=== PATIENT | female | born 1940 | race Caucasian/White ===

== ENCOUNTER 2020-06-10 13:42 | Emergency (ER) | payer MEDICARE, OTHER ==
[~2020-06-10] VITALS: Ht 152.4 cm; Wt 56.7 kg
[2020-06-10 14:41] VITALS: BP 146/80
[2020-06-10 14:55] LABS: Basophils # (auto) 0.1 10 ^3/uL (0-0.2); Basophils % (auto) 0.8 % (0.0-2.0); Eosinophils # (auto) 0.3 10 ^3/uL (0-0.8); Eosinophils % (auto) 2.9 % (0.0-7.0); Hematocrit 41.9 % (36.0-46.0); Hemoglobin 14.2 g/dL (12.2-16.2); Lymphocytes # (auto) 1.7 10 ^3/uL (0.4-5.4); Lymphocytes % (auto) 16.3 % (10.0-50.0); Mean Corpuscular Volume 88.4 fL (80.0-100.0); Monocytes # (auto) 0.8 10 ^3/uL (0-1.3); Monocytes % (auto) 7.6 % (0.0-12.0); Neutrophils # (auto) 7.5 10 ^3/uL (1.6-8.6); Neutrophils % (auto) 72.4 % (37.0-80.0); Platelet Count (auto) 362 10^3/uL (140-450); Red Blood Cells 4.74 10^6/uL (4.0-5.20); Red Cell Distribution Width 13.3 % (11.8-14.3); White Blood Cell 10.4 10^3/uL (4.4-10.8)
[2020-06-10 16:12] LABS: Alanine Aminotransferase 15 U/L (13-56); Albumin 3.9 g/dL (3.4-5.0); Anion Gap 11 (5-15); Aspartate Aminotransferase 14 U/L (15-37); BUN/Creatinine Ratio 15.2; Blood Urea Nitrogen 10 mg/dL (7-18); Calcium 9.1 mg/dL (8.5-10.1); Carbon Dioxide 22 mmol/L (21-32); Chloride 102 mmol/L (98-107); GFR African American 112 mL/min; GFR Non-African American 92 mL/min; Glucose 111 mg/dL (74-106); Potassium 3.1 mmol/L (3.5-5.1); Sodium 135 mmol/L (136-145)
[2020-06-10 16:15] LABS: Urine Bacteria FEW /hpf (None Seen); Urine Blood TRACE /uL (Negative); Urine Budding Yeast MODERATE /hpf (None Seen); Urine Specific Gravity 1.014 (1.001-1.035); Urine WBC 82 /hpf (0 - 5)
[2020-06-10 16:17] LABS: Alkaline Phosphatase 129 U/L (45-117); Bilirubin, Total 1.2 mg/dL (0.2-1.0); Total Protein 7.4 g/dL (6.4-8.2)
[2020-06-10] MEDS ORDERED: cefTRIAXone W LIDOCAINE 1 GM IM IM ONE (16:45)
[2020-06-10] MEDS ORDERED: POTASSIUM EFFERVESENT TAB 25 MEQ PO ONE (16:45)
== END 2020-06-10 21:27 | disposition home or self-care (01) ==
LOC: ER 13:42
DX: F03.90 Unspecified dementia, unspecified severity, without behavioral disturbance, psychotic disturbance, mood disturbance, and anxiety (principal); N39.0 Urinary tract infection, site not specified; E87.6 Hypokalemia
CPT/HCPCS: 36415; 70450; 71045; 80053; 81001; 84484; 85025; 99285; J0696

== ENCOUNTER 2021-12-10 12:29 | Inpatient (IN) | payer MEDICARE, OTHER ==
[~2021-12-10] VITALS: Ht 152.4 cm; Wt 53.0 kg
[2021-12-10] MEDS ORDERED: SODIUM CHLORIDE 0.9% 1,000 ML IV ONE ×2 (12:45→13:45)
[2021-12-10 13:13] LABS: Basophils # (auto) 0.1 10 ^3/uL (0-0.2); Basophils % (auto) 0.3 % (0.0-2.0); Eosinophils # (auto) 0 10 ^3/uL (0-0.8); Eosinophils % (auto) 0.1 % (0.0-7.0); Hematocrit 37.4 % (36.0-46.0); Hemoglobin 12.5 g/dL (12.2-16.2); Lymphocytes # (auto) 1.3 10 ^3/uL (0.4-5.4); Lymphocytes % (auto) 5.3 % (10.0-50.0); Mean Corpuscular Hemoglobin 29.5 pg (28.0-32.0); Mean Corpuscular Hgb Conc. 33.4 g/dL (32.0-36.0); Mean Corpuscular Volume 88.3 fL (80.0-100.0); Monocytes # (auto) 1.1 10 ^3/uL (0-1.3); Monocytes % (auto) 4.3 % (0.0-12.0); Neutrophils # (auto) 22.4 10 ^3/uL (1.6-8.6); Red Blood Cells 4.23 10^6/uL (4.0-5.20); Red Cell Distribution Width 14.4 % (11.8-14.3); White Blood Cell 24.9 10^3/uL (4.4-10.8)
[2021-12-10 13:44] LABS: Albumin 2.3 g/dL (3.4-5.0); Calcium 8.3 mg/dL (8.5-10.1); Potassium 3.2 mmol/L (3.5-5.1)
[2021-12-10 13:48] LABS: BUN/Creatinine Ratio 11.5; Bilirubin, Total 1.4 mg/dL (0.2-1.0); Total Protein 5.9 g/dL (6.4-8.2)
[2021-12-10] MEDS ORDERED: cefTRIAXone 1GM/50ML D5W 50 ML IV ONE ×2 (15:30→17:45)
[2021-12-10] MEDS ORDERED: POTASSIUM CHL 20 Meq TABLET PO ONE (15:30)
[2021-12-10] MEDS ORDERED: NITROGLYCERIN 0.4 MG SL TAB SL PRN (15:30)
[2021-12-10] MEDS ORDERED: MORPHINE SULFATE INJECTION 2 MG/ML SYRG IV PRN ×2 (15:30→17:45)
[2021-12-10 16:24] LABS: Urine Bacteria FEW /hpf (None Seen); Urine Blood 1+ /uL (Negative); Urine Budding Yeast OCCASIONAL /hpf (None Seen); Urine Specific Gravity 1.014 (1.001-1.035); Urine WBC 346 /hpf (0 - 5); Urine WBC Clumps PRESENT /hpf (None Seen)
[2021-12-10] MEDS ORDERED: LORazepam 0.5 MG TAB PO PRN (17:45)
[2021-12-10] MEDS ORDERED: HYDROcodone-ACET 5/325MG TAB PO PRN (17:45)
[2021-12-10] MEDS ORDERED: ONDANSETRON HCL 4 MG/2 ML VIAL IV PRN (17:45)
[2021-12-10] MEDS ORDERED: FAMOTIDINE (10MG/ML) 2ML VL IV ONE (17:45)
[2021-12-10] MEDS ORDERED: LACTULOSE 20Gm/30ML SOLN PO PRN (17:45)
[2021-12-10] MEDS ORDERED: DOCUSATE SOD 100 MG CAP PO PRN (17:45)
[2021-12-10] MEDS ORDERED: ACETAMINOPHEN 325 MG TAB PO PRN (17:45)
[2021-12-10] MEDS ORDERED: hydrALAZINE HCL 20 MG/ML VL IV PRN (17:45)
[2021-12-10] MEDS ORDERED: metroNIDAZOLE 500MG/100ML 100 ML IV ONE (17:45)
[2021-12-10 18:31] LABS: Magnesium 1.5 mg/dL (1.6-2.6); Phosphorus 3.2 mg/dL (2.5-4.90)
[2021-12-10] MEDS: SODIUM CHLORIDE 0.9% 1,000 ML IV SCH (18:59)
[2021-12-10 20:20] VITALS: BP 134/66
[2021-12-10 22:00] VITALS: BP 134/66
[2021-12-10] MEDS ORDERED: MEMANTINE HCL 5 MG TAB PO SCH (22:00)
[2021-12-10] MEDS: POTASSIUM CHL 20 Meq TABLET PO SCH (22:00)
[2021-12-10] MEDS ORDERED: OXYBUTYNIN CHL 5 MG TAB PO SCH (22:00)
[2021-12-10] MEDS: ATORVASTATIN 20 MG TAB PO SCH (22:24)
[2021-12-11] MEDS: metroNIDAZOLE 500MG/100ML 100 ML IV SCH ×3 (01:55→19:00)
[2021-12-11] MEDS ORDERED: FAMO20TA PO (02:40)
[2021-12-11] MEDS ORDERED: CARB-79 PO (02:40)
[2021-12-11] MEDS ORDERED: DONE1TAB88 PO (02:40)
[2021-12-11] MEDS ORDERED: ALEN70SO PO (02:40)
[2021-12-11] MEDS ORDERED: QUIN20TA35 PO (02:40)
[2021-12-11 05:00] VITALS: BP 124/65
[2021-12-11 07:16] LABS: Chloride 114 mmol/L (98-107); Magnesium 1.8 mg/dL (1.6-2.6); Potassium 3.1 mmol/L (3.5-5.1); Sodium 145 mmol/L (136-145); Uric Acid 3.7 mg/dL (2.6-6.0)
[2021-12-11 07:19] LABS: Basophils # (auto) 0.1 10 ^3/uL (0-0.2); Basophils % (auto) 0.3 % (0.0-2.0); Eosinophils # (auto) 0.1 10 ^3/uL (0-0.8); Eosinophils % (auto) 0.4 % (0.0-7.0); Hematocrit 37.1 % (36.0-46.0); Hemoglobin 12.4 g/dL (12.2-16.2); Lymphocytes # (auto) 0.8 10 ^3/uL (0.4-5.4); Lymphocytes % (auto) 4.9 % (10.0-50.0); Mean Corpuscular Hemoglobin 29.8 pg (28.0-32.0); Mean Corpuscular Hgb Conc. 33.5 g/dL (32.0-36.0); Mean Corpuscular Volume 88.8 fL (80.0-100.0); Monocytes # (auto) 0.8 10 ^3/uL (0-1.3); Monocytes % (auto) 4.7 % (0.0-12.0); Neutrophils # (auto) 15.4 10 ^3/uL (1.6-8.6); Neutrophils % (auto) 89.7 % (37.0-80.0); Nucleated Red Blood Cells % 0.1 %; Red Blood Cells 4.18 10^6/uL (4.0-5.20); Red Cell Distribution Width 14.8 % (11.8-14.3); White Blood Cell 17.1 10^3/uL (4.4-10.8)
[2021-12-11 07:24] LABS: INR 1.23 (0.9-1.15); Partial Thromboplastin Time 32.2 sec (23.6-33.0)
[2021-12-11 07:25] LABS: Thyroid Stimulating Hormone 12.1 uIU/mL (0.358-3.74)
[2021-12-11 07:32] LABS: Alanine Aminotransferase 16 U/L (13-56); Albumin 2.2 g/dL (3.4-5.0); Alkaline Phosphatase 103 U/L (45-117); Anion Gap 10 (5-15); Aspartate Aminotransferase 16 U/L (15-37); Bilirubin, Total 0.8 mg/dL (0.2-1.0); Blood Urea Nitrogen 10 mg/dL (7-18); Calcium 8.3 mg/dL (8.5-10.1); Carbon Dioxide 21 mmol/L (21-32); Cholesterol 132 mg/dL (< 200); Creatine Kinase IFCC 32 U/L (26-192); GFR African American 153 mL/min; GFR Non-African American 126 mL/min; Glucose 91 mg/dL (74-106); HDL Cholesterol 54 mg/dL (40-59); LDL Cholesterol 59 mg/dL (< 100); Lipase 50 U/L (73-393); Phosphorus 2.6 mg/dL (2.5-4.90); Total Protein 5.7 g/dL (6.4-8.2); Triglycerides 87 mg/dL (< 150)
[2021-12-11 07:38] LABS: CRP High Sensitivity > 19 mg/dL (< 0.3)
[2021-12-11 08:27] VITALS: BP 135/59
[2021-12-11] MEDS: ASPirin 81 mg TAB PO SCH (08:59)
[2021-12-11] MEDS: POTASSIUM CHL 20 Meq TABLET PO SCH ×2 (08:59→21:45)
[2021-12-11] MEDS: ENOXAPARIN SOD 40 MG/0.4 ML SYRINGE SC SCH (09:00)
[2021-12-11] MEDS: cefTRIAXone 1GM/50ML D5W 50 ML IV SCH (09:00)
[2021-12-11 09:55] LABS: Alcohol, Urine < 3.0 mg/dL (0-10); Amphetamine Screen, Urine NEGATIVE (NEGATIVE); Barbiturate Scree,Urine NEGATIVE (NEGATIVE); Benzodiazephine Screen, Urine NEGATIVE (NEGATIVE); Cannabinoid Screen, Urine NEGATIVE (NEGATIVE); Cocaine Screen, Urine NEGATIVE (NEGATIVE); Opiate Scree,Urine NEGATIVE (NEGATIVE); Phencyclidine Screen, Urine NEGATIVE (NEGATIVE); Protein, Urine 68.8 mg/dL (0.0-11.9)
[2021-12-11] MEDS ORDERED: MAGNESIUM SULFATE 1GM/100ML 100 ML IV ONE (11:00)
[2021-12-11 12:30] VITALS: BP 150/63
[2021-12-11 17:00] VITALS: BP 125/62
[2021-12-11] MEDS: SODIUM CHLORIDE 0.9% 1,000 ML IV SCH (17:38)
[2021-12-11] MEDS: ATORVASTATIN 20 MG TAB PO SCH (21:44)
[2021-12-11 22:00] VITALS: BP 143/99
[2021-12-12] MEDS: metroNIDAZOLE 500MG/100ML 100 ML IV SCH ×3 (02:13→17:55)
[2021-12-12] MEDS: SODIUM CHLORIDE 0.9% 1,000 ML IV SCH ×2 (03:05→17:55)
[2021-12-12 05:00] VITALS: BP 99/55
[2021-12-12 09:00] VITALS: BP 113/58
[2021-12-12] MEDS: POTASSIUM CHL 20 Meq TABLET PO SCH ×2 (09:34→23:18)
[2021-12-12] MEDS: ASPirin 81 mg TAB PO SCH (09:34)
[2021-12-12] MEDS: cefTRIAXone 1GM/50ML D5W 50 ML IV SCH (09:34)
[2021-12-12] MEDS: ENOXAPARIN SOD 40 MG/0.4 ML SYRINGE SC SCH (09:35)
[2021-12-12] MEDS: FAMOTIDINE (10MG/ML) 2ML VL IV SCH (09:35)
[2021-12-12 13:00] VITALS: BP 96/56
[2021-12-12 17:00] VITALS: BP 141/56
[2021-12-12 22:00] VITALS: BP 121/65
[2021-12-12] MEDS: Ensure HIGH Protein Vanilla 8oz Bottle PO SCH (23:17)
[2021-12-12] MEDS: ATORVASTATIN 20 MG TAB PO SCH (23:18)
[2021-12-13] MEDS: metroNIDAZOLE 500MG/100ML 100 ML IV SCH ×3 (02:01→17:56)
[2021-12-13 05:00] VITALS: BP 106/51
[2021-12-13 06:52] LABS: Hematocrit 33.6 % (36.0-46.0); Hemoglobin 11.4 g/dL (12.2-16.2); Mean Corpuscular Hemoglobin 30.3 pg (28.0-32.0); Red Blood Cells 3.77 10^6/uL (4.0-5.20); Red Cell Distribution Width 14.9 % (11.8-14.3); White Blood Cell 17.2 10^3/uL (4.4-10.8)
[2021-12-13 06:53] LABS: Albumin 1.8 g/dL (3.4-5.0); Calcium 7.6 mg/dL (8.5-10.1); Potassium 3.2 mmol/L (3.5-5.1)
[2021-12-13 06:58] LABS: BUN/Creatinine Ratio 23.3; Bilirubin, Total 0.7 mg/dL (0.2-1.0); Total Protein 4.9 g/dL (6.4-8.2)
[2021-12-13 07:20] LABS: Basophils % (manual) 0 (0.0-2.0); Blast Cells 0; Eosinophils % (manual) 0 (0-7); Myelocytes % 0; Promyelocytes % 0; Reactive Lymphocytes 0
[2021-12-13 07:56] LABS: Band Neutrophils % (manual) 75; Lymphocytes % (manual) 8 (10.0-50.0); Metamyelocytes % 1; Monocytes % (manual) 3 (0-12)
[2021-12-13] MEDS: LEVOTHYROXINE SODIUM 25 MCG TAB PO SCH (07:56)
[2021-12-13 08:00] VITALS: BP 121/66
[2021-12-13] MEDS: Ensure HIGH Protein Vanilla 8oz Bottle PO SCH ×2 (10:00→21:22)
[2021-12-13] MEDS: Pro-Stat SF 30ml Vanilla PO SCH (10:00)
[2021-12-13 12:00] VITALS: BP 114/71
[2021-12-13] MEDS: SODIUM CHLORIDE 0.9% 1,000 ML IV SCH (12:25)
[2021-12-13] MEDS ORDERED: ENOXAPARIN SOD 60 MG/0.6 ML SYRINGE SC ONE (13:15)
[2021-12-13] MEDS: cefTRIAXone 1GM/50ML D5W 50 ML IV SCH (13:44)
[2021-12-13] MEDS: ASPirin 81 mg TAB PO SCH (13:44)
[2021-12-13] MEDS: POTASSIUM CHL 20 Meq TABLET PO SCH ×2 (13:44→21:22)
[2021-12-13 16:00] VITALS: BP 147/52
[2021-12-13] MEDS: ENOXAPARIN SOD 60 MG/0.6 ML SYRINGE SC SCH (21:23)
[2021-12-13] MEDS: ATORVASTATIN 20 MG TAB PO SCH (21:23)
[2021-12-13 21:38] VITALS: BP 127/117
[2021-12-13 22:22] VITALS: BP 134/71
[2021-12-14] MEDS: metroNIDAZOLE 500MG/100ML 100 ML IV SCH ×2 (01:59→10:00)
[2021-12-14 05:01] VITALS: BP 134/96
[2021-12-14] MEDS: SODIUM CHLORIDE 0.9% 1,000 ML IV SCH (05:19)
[2021-12-14] MEDS: LEVOTHYROXINE SODIUM 25 MCG TAB PO SCH (05:51)
[2021-12-14 09:05] VITALS: BP 130/71
[2021-12-14] MEDS: cefTRIAXone 1GM/50ML D5W 50 ML IV SCH (09:15)
[2021-12-14 10:12] LABS: Free T3 0.98 pg/mL (2.3-4.2); Free T4 (Free Thyroxine) 0.59 ng/dL (0.89-1.76)
[2021-12-14] MEDS: Ensure HIGH Protein Vanilla 8oz Bottle PO SCH ×2 (10:49→22:58)
[2021-12-14] MEDS: ASPirin 81 mg TAB PO SCH (12:07)
[2021-12-14] MEDS: POTASSIUM CHL 20 Meq TABLET PO SCH ×2 (12:07→22:59)
[2021-12-14] MEDS: FAMOTIDINE (10MG/ML) 2ML VL IV SCH (12:07)
[2021-12-14] MEDS: Pro-Stat SF 30ml Vanilla PO SCH (12:08)
[2021-12-14] MEDS: ENOXAPARIN SOD 60 MG/0.6 ML SYRINGE SC SCH ×2 (12:08→22:59)
[2021-12-14 13:00] VITALS: BP 146/77
[2021-12-14 16:53] VITALS: BP 132/62
[2021-12-14] MEDS: VANCOMYCIN HCL 125MG/5ML ORAL SOL PO SCH (18:52)
[2021-12-14 22:00] VITALS: BP 152/66
[2021-12-15] MEDS: VANCOMYCIN HCL 125MG/5ML ORAL SOL PO SCH ×4 (00:08→17:51)
[2021-12-15 05:00] VITALS: BP 149/76
[2021-12-15 05:53] LABS: Hematocrit 35.2 % (36.0-46.0); Hemoglobin 11.8 g/dL (12.2-16.2); Mean Corpuscular Hemoglobin 29.6 pg (28.0-32.0); Mean Corpuscular Hgb Conc. 33.4 g/dL (32.0-36.0); Mean Corpuscular Volume 88.9 fL (80.0-100.0); Red Blood Cells 3.97 10^6/uL (4.0-5.20); Red Cell Distribution Width 15.3 % (11.8-14.3); White Blood Cell 17.6 10^3/uL (4.4-10.8)
[2021-12-15 05:55] LABS: Basophils % (manual) 0 (0.0-2.0); Blast Cells 0; Myelocytes % 0; Promyelocytes % 0; Reactive Lymphocytes 0
[2021-12-15 06:07] LABS: Potassium 3.8 mmol/L (3.5-5.1)
[2021-12-15 06:12] LABS: BUN/Creatinine Ratio 28.6; Calcium 7.7 mg/dL (8.5-10.1)
[2021-12-15] MEDS: LEVOTHYROXINE SODIUM 25 MCG TAB PO SCH (06:17)
[2021-12-15 07:09] LABS: Band Neutrophils % (manual) 4; Eosinophils % (manual) 2 (0-7); Lymphocytes % (manual) 8 (10.0-50.0); Metamyelocytes % 2; Monocytes % (manual) 2 (0-12)
[2021-12-15 08:34] VITALS: BP 148/77
[2021-12-15] MEDS: cefTRIAXone 1GM/50ML D5W 50 ML IV SCH (08:43)
[2021-12-15] MEDS: Ensure HIGH Protein Vanilla 8oz Bottle PO SCH ×2 (08:43→23:31)
[2021-12-15] MEDS: POTASSIUM CHL 20 Meq TABLET PO SCH ×2 (09:41→23:30)
[2021-12-15] MEDS: ENOXAPARIN SOD 60 MG/0.6 ML SYRINGE SC SCH ×2 (09:41→23:28)
[2021-12-15] MEDS: Pro-Stat SF 30ml Vanilla PO SCH (09:41)
[2021-12-15] MEDS: D5W 5% 1,000 ML IV SCH (10:32)
[2021-12-15 12:40] VITALS: BP 132/54
[2021-12-15 16:38] VITALS: BP 149/69
[2021-12-15 22:00] VITALS: BP 148/80
[2021-12-15] MEDS: QUINAPRIL HCL 10 MG TAB PO SCH (22:00)
[2021-12-15] MEDS: DONEPEZIL HYDROCHLORIDE 5 MG TAB PO SCH (23:28)
[2021-12-15] MEDS: CARBIDOPA W LEVODOPA 10/100mg TABLET PO SCH (23:28)
[2021-12-16] MEDS: VANCOMYCIN HCL 125MG/5ML ORAL SOL PO SCH ×4 (00:33→17:24)
[2021-12-16] MEDS: D5W 5% 1,000 ML IV SCH ×2 (00:46→12:40)
[2021-12-16 04:51] VITALS: BP 142/63
[2021-12-16] MEDS: LEVOTHYROXINE SODIUM 25 MCG TAB PO SCH (07:40)
[2021-12-16] MEDS: CARBIDOPA W LEVODOPA 10/100mg TABLET PO SCH ×3 (07:41→22:57)
[2021-12-16 07:49] LABS: BUN/Creatinine Ratio 23.4; Calcium 7.8 mg/dL (8.5-10.1); Potassium 3.8 mmol/L (3.5-5.1)
[2021-12-16 09:00] VITALS: BP 138/66
[2021-12-16] MEDS: QUINAPRIL HCL 10 MG TAB PO SCH ×2 (09:14→22:56)
[2021-12-16] MEDS: cefTRIAXone 1GM/50ML D5W 50 ML IV SCH (09:14)
[2021-12-16] MEDS: OXYBUTYNIN CHL 5 MG TAB PO SCH (09:16)
[2021-12-16] MEDS: Ensure HIGH Protein Vanilla 8oz Bottle PO SCH ×2 (09:16→22:57)
[2021-12-16] MEDS: POTASSIUM CHL 20 Meq TABLET PO SCH (09:16)
[2021-12-16] MEDS: ENOXAPARIN SOD 60 MG/0.6 ML SYRINGE SC SCH ×2 (09:17→22:57)
[2021-12-16] MEDS: Pro-Stat SF 30ml Vanilla PO SCH (10:00)
[2021-12-16 13:11] VITALS: BP 120/90
[2021-12-16 17:00] VITALS: BP 121/69
[2021-12-16 21:32] VITALS: BP 122/82
[2021-12-16] MEDS: DONEPEZIL HYDROCHLORIDE 5 MG TAB PO SCH (22:56)
[2021-12-17] MEDS: VANCOMYCIN HCL 125MG/5ML ORAL SOL PO SCH ×4 (00:42→18:00)
[2021-12-17 01:47] LABS: Urine Bacteria MANY /hpf (None Seen); Urine Blood Negative /uL (Negative); Urine Budding Yeast OCCASIONAL /hpf (None Seen); Urine Mucus FEW (None Seen); Urine Specific Gravity 1.014 (1.001-1.035); Urine WBC 7 /hpf (0 - 5)
[2021-12-17] MEDS: D5W 5% 1,000 ML IV SCH ×2 (02:29→15:04)
[2021-12-17 04:44] VITALS: BP 123/78
[2021-12-17] MEDS: CARBIDOPA W LEVODOPA 10/100mg TABLET PO SCH ×2 (06:17→14:00)
[2021-12-17] MEDS: LEVOTHYROXINE SODIUM 25 MCG TAB PO SCH (07:09)
[2021-12-17 08:20] VITALS: BP 120/61
[2021-12-17] MEDS: cefTRIAXone 1GM/50ML D5W 50 ML IV SCH (09:00)
[2021-12-17] MEDS: OXYBUTYNIN CHL 5 MG TAB PO SCH (09:43)
[2021-12-17] MEDS: ENOXAPARIN SOD 60 MG/0.6 ML SYRINGE SC SCH (09:43)
[2021-12-17] MEDS: QUINAPRIL HCL 10 MG TAB PO SCH (09:43)
[2021-12-17] MEDS: Pro-Stat SF 30ml Vanilla PO SCH (10:29)
[2021-12-17] MEDS: Ensure HIGH Protein Vanilla 8oz Bottle PO SCH (10:29)
[2021-12-17] MEDS ORDERED: APIX5TAB PO (12:54)
[2021-12-17 13:04] VITALS: BP 118/72
[2021-12-17] MEDS ORDERED: VANC125PO PO (13:24)
[2021-12-17] MEDS ORDERED: LEV25T PO (13:25)
[2021-12-17 17:05] VITALS: BP 122/74
== END 2021-12-17 19:20 | disposition home health service (06) | DRG 871 ==
LOC: EDBD 12:29 → ER 12:29 → OVERFLOW 15:26 → WEST WING 20:03
PROVIDERS: ADMIT Hospitalist; ATTEND Internal Medicine Nephrology
DX: A41.9 Sepsis, unspecified organism (principal); E43 Unspecified severe protein-calorie malnutrition; G93.41 Metabolic encephalopathy; R53.2 Functional quadriplegia; N39.0 Urinary tract infection, site not specified; I82.432 Acute embolism and thrombosis of left popliteal vein; I82.412 Acute embolism and thrombosis of left femoral vein; A04.72 Enterocolitis due to Clostridium difficile, not specified as recurrent; E87.0 Hyperosmolality and hypernatremia; E78.5 Hyperlipidemia, unspecified; F02.80 Dementia in other diseases classified elsewhere, unspecified severity, without behavioral disturbance, psychotic disturbance, mood disturbance, and anxiety; G20 Parkinson's disease; R62.7 Adult failure to thrive; N39.3 Stress incontinence (female) (male); E03.9 Hypothyroidism, unspecified; I10 Essential (primary) hypertension; E87.6 Hypokalemia; Z20.822 Contact with and (suspected) exposure to COVID-19; Z86.73 Personal history of transient ischemic attack (TIA), and cerebral infarction without residual deficits; Z68.21 Body mass index [BMI] 21.0-21.9, adult
CPT/HCPCS: 36415; 70450; 71045; 71275; 73060; 80048; 80053; 80061; 80307; 81001; 82270; 82306; 82550; 82728; 83605; 83615; 83690; 83735; 83880; 84100; 84156; 84439; 84443; 84481; 84484; 84550; 85007; 85025; 85027; 85379; 85610; 85652; 85730; 86141; 87040; 87081; 87086; 87088; 87186; 87493; 93005; 93971; 96361; 96365; 96367; 97110; 97530; G0378; J0696; J3490